=== PATIENT | female | born 1950 | race Caucasian/White ===

== ENCOUNTER 2017-01-13 10:18 | Emergency (ER) | payer MEDICARE, MEDICAID ==
[2017-01-13 10:19] VITALS: BMI 27.4
[2017-01-13 10:26] VITALS: O2SAT 98
[2017-01-13] MEDS ORDERED: Sodium Chloride 0.9% 1,000 ML IV SCH (11:00)
[2017-01-13 11:28] LABS: BASO # 0.02 K/mm3 (0.0-2.0); BASO % 0.3 % (0.0-3.0); EOS # 0.6 (0.0-0.7); EOS % 9.8 % (1.5-5.0); GRAN # 2.91 (1.4-6.5); GRAN % 50.8 % (50.0-68.0); LYMPH # 1.8 (1.2-3.4); LYMPH % 30.5 % (22.0-35.0); MEAN CELL VOLUME 83.7 fl (80.0-105.0); MEAN CORPUSCULAR HEMOGLOBIN 27.6 pg (25.0-35.0); MONO # 0.5 (0.1-0.6); MONO % 8.6 % (1.0-6.0); PLATELET COUNT 145 10^3/uL (120.0-450.0); RED CELL DISTRIBUTION WIDTH 14.8 % (11.5-14.5); WHITE BLOOD COUNT 5.7 10^3/ul (4.5-11.0)
[2017-01-13 11:32] LABS: ALB/GLOB RATIO 1.6 (1.1-1.8); ALKALINE PHOSPHATASE 69 U/L (38-126); ALT/SGPT 42 U/L (7-56); AST/SGOT 23 U/L (14-36); BILIRUBIN,TOTAL 0.9 mg/dL (0.2-1.3); BLOOD UREA NITROGEN 15 mg/dL (7-21); CALCIUM 9.6 mg/dL (8.4-10.5); CARBON DIOXIDE 29 mmol/L (21-33); CHLORIDE 102 mmol/L (98-107); GFR AFRICAN-AMERICAN > 60; GLUCOSE,RANDOM 133 mg/dL (70-110); MAGNESIUM 1.9 mg/dL (1.7-2.2); PH,URINE 6.5 (4.7-8.0); PHOSPHOROUS 3.7 mg/dL (2.5-4.5); POTASSIUM 4.2 mmol/L (3.6-5.0); SODIUM 142 mmol/L (132-148); TOTAL PROTEIN 7.5 g/dL (5.8-8.3); URINE APPEARANCE CLEAR (CLEAR); URINE BILIRUBIN NEGATIVE (NEGATIVE); URINE BLOOD NEGATIVE (NEGATIVE); URINE COLOR YELLOW (YELLOW); URINE GLUCOSE (UA) NEGATIVE (NEGATIVE); URINE KETONE NEGATIVE (NEGATIVE); URINE LEUKOCYTE ESTERASE SMALL Leu/uL (NEGATIVE); URINE PROTEIN TRACE mg/dL (<30 mg/dL); URINE UROBILINOGEN 0.2 E.U./dL (<1 E.U./dL)
[2017-01-13 11:33] LABS: INR 0.96 (0.93-1.08)
[2017-01-13 11:49] LABS: TROPONIN I < 0.01 ng/mL
[2017-01-13 12:01] LABS: URINE RBC 0 - 2 /hpf (0-2)
[2017-01-13] MEDS ORDERED: Morphine 2 mg/ml ISec IVP STA (12:02)
[2017-01-13 12:03] LABS: URINE AMORPHOUS SEDIMENT FEW; URINE BACTERIA MANY (NEG)
--- NOTE | 2017-01-13 12:10 | ED PDOC ---
Arrival/HPI - General Chief Complaint: Back Pain Time Seen by Provider: 01/13/17 10:23 Historian: Patient - History of Present Illness Narrative History of Present Illness (Text): 01/13/17 12:06 66yo F PMH HTN, HLD, DM2, gout, osteoporosis and hx of ablation for arrhythmia who presents with L flank pain x3 days a/w nausea. pt states that he pain is sharp and non-radiating, but causing a great amount of discomfort. pt denies dysuria, hematuria, fevers/chills, chest pain, shortness of breath. a year ago, the patient presented with back pain (which she states she has hx of herniated discs in cervical and lumbar spines) and was found to have a 16mm R adrenal nodule, but it has not bothered her since. PMD: Dr. Jeffry Delaney PSH: thyroidectomy, cardiac ablation Time/Duration: < week Symptom Onset: Sudden Symptom Course: Unchanged Quality: Stabbing Severity Level: Severe Activities at Onset: Rest Context: Home Past Medical History - Provider Review Nursing Documentation Reviewed: Yes - Past History Past History: Non-Contributing - Infectious Disease Hx of Infectious Diseases: None - Reproductive Menopause: Yes - Past Medical History Past Medical History: Non-Contributing - Cardiac Hx Cardiac Arrhythmia: Yes Hx Hyperlipemia: Yes Hx Hypertension: Yes - Pulmonary Hx Respiratory Disorders: No - Neurological Hx Neurological Disorder: No - HEENT Hx HEENT Disorder: No - Renal Hx Renal Disorder: No - Endocrine/Metabolic Other/Comment: hx thyroidectomy - Hematological/Oncological Hx Blood Disorders: No - Integumentary Hx Dermatological Disorder: No - Musculoskeletal/Rheumatological Hx Musculoskeletal Disorders: Yes Hx Back Pain: Yes Hx Herniated Disk: Yes Hx Osteoporosis: Yes - Gastrointestinal Hx Gastrointestinal Disorders: No - Genitourinary/Gynecological Hx Genitourinary Disorders: No - Psychiatric Hx Psychophysiologic Disorder: No Hx Substance Use: No - Surgical History Hx Thyroidectomy: Yes Other/Comment: heart ablation - Anesthesia Hx Anesthesia: Yes Hx Anesthesia Reactions: No Hx Malignant Hyperthermia: No Family/Social History - Physician Review Nursing Documentation Reviewed: Yes Family/Social History: No Known Family HX Smoking Status: Never Smoked Hx Alcohol Use: No Hx Substance Use: No Allergies/Home Meds Allergies/Adverse Reactions: Allergies No Known Allergies Allergy (Verified 01/13/17 10:26) Home Medications: Home Meds Medication Instructions Recorded Confirmed Metformin ER [Glucophage XR] 500 mg PO DAILY 03/22/15 01/13/17 Verapamil [Calan Tab] 40 mg PO TID 03/22/15 01/13/17 Levothyroxine [Synthroid] 137 mcg PO DAILY 05/20/15 01/13/17 Losartan [Cozaar] 50 mg PO DAILY 05/20/15 01/13/17 Aspirin [Ecotrin] 81 mg PO DAILY 01/13/17 01/13/17 Colchicine [Colcrys] 0.6 mg PO DAILY 01/13/17 01/13/17 Glimepiride [amaRYL] 2 mg PO DAILY 01/13/17 01/13/17 Olmesartan Medoxomil [Benicar] 20 mg PO DAILY 01/13/17 01/13/17 Review of Systems - Physician Review All systems were reviewed & negative as marked: Yes - Review of Systems Constitutional: absent: Fevers Respiratory: absent: SOB Cardiovascular: absent: Chest Pain Gastrointestinal: Nausea. absent: Vomiting Musculoskeletal: Back Pain (L flank pain) Physical Exam Vital Signs Reviewed: Yes Vital Signs Temp Pulse Resp BP Pulse Ox 01/13/17 14:40 98.2 F 84 16 130/80 98 01/13/17 13:47 93 H 18 124/86 98 01/13/17 10:24 97.9 F 100 H 18 120/83 98 01/13/17 10:19 97.9 F 100 H 18 120/83 98 Appearance: Positive for: Well-Appearing Pain Distress: None Mental Status: Positive for: Alert and Oriented X 3 - Systems Exam Head: Present: Atraumatic, Normocephalic Pupils: Present: PERRL Extroacular Muscles: Present: EOMI Conjunctiva: Present: Normal Mouth: Present: Moist Mucous Membranes Neck: Present: Normal Range of Motion Respiratory/Chest: Present: Clear to Auscultation, Good Air Exchange Cardiovascular: Present: Tachycardic Abdomen: Present: Normal Bowel Sounds. No: Tenderness, Distention Back: Present: CVA Tenderness (L ) Upper Extremity: Present: Normal Inspection Lower Extremity: Present: Normal Inspection. No: Edema Neurological: Present: CN II-XII Intact, Speech Normal Skin: Present: Warm, Dry Psychiatric: Present: Alert, Oriented x 3 Medical Decision Making ED Course and Treatment: 01/13/17 12:13 Impression: 66yo F presenting with L flank pain x3 days likely 2/2 nephrolithiasis Plan: - CT abdomen w/o contrast - pain management - Labs - UA - IVF NS @ 100 Progress: Pt unable to find comfortable position. Morphine ordered 01/13/17 12:19 EKG: NSR @ 83bpm. NO ST or interval changes. CT Abdomen and Pelvis without intravenous contrast Report Date : 01/13/2017 12:16:56 Creator : Shanti Taylor MD FINDINGS: LOWER THORAX: There is dependent atelectasis in the lung bases. LIVER: The liver is normal in size. No gross lesion or ductal dilatation. GALLBLADDER AND BILE DUCTS: There are multiple gallstones. PANCREAS: The pancreas is normal in size. No gross lesion or ductal dilatation. SPLEEN: There is borderline splenomegaly. ADRENALS: There is a stable 15 mm low-attenuation nodule in the right adrenal gland. No nodule in the left abdomen. KIDNEYS AND URETERS: Both kidneys are normal in size without nephrolithiasis. No hydronephrosis. No solid mass. VASCULATURE: No aortic aneurysm. BOWEL: The small bowel loops are normal in caliber there is large amount of stool in the ascending and transverse colon and moderate amount of stool in the left hemicolon. No bowel dilatation or obstruction APPENDIX: No inflammatory changes in the right lower quadrant. PERITONEUM: No free fluid. No free air. LYMPH NODES: No enlarged lymph nodes. BLADDER: Partially decompressed. REPRODUCTIVE: The uterus is normal in size. BONES: No acute fracture. Within normal limits for the patient's age. OTHER FINDINGS: None. IMPRESSION: 1. No evidence of nephrolithiasis, obstructive uropathy or hydronephrosis. 2. Stable 15 mm right adrenal nodule. 3. Constipation. No evidence of bowel obstruction. 4. Cholelithiasis. 01/13/17 12:35 Reassessment: pain improved with Morphine Chest XRay Report Date : 01/13/2017 13:10:26 Creator : Shanti Taylor MD FINDINGS: LUNGS: The lungs are well inflated and clear. PLEURA: No significant pleural effusion identified, no pneumothorax apparent. CARDIOVASCULAR: Normal. OSSEOUS STRUCTURES: No significant abnormalities. VISUALIZED UPPER ABDOMEN: Normal. OTHER FINDINGS: None. IMPRESSION: No active pulmonary disease. 01/13/17 14:47 Reassessment: pt is mobilizing well, and offering no complaints. it was explained to the patient that she should f/u with her PMD for optimization of pain management and for recommending a PT rehab location for strengthening and condition. Pt is ambulating without any discomfort. Pt states that she is unable to take Ultram so Naprosyn is prescribed. Re-evaluation Time: 12:19 Reassessment Condition: Re-examined, Improved (w/ morphine) - Lab Interpretations Lab Results: 01/13/17 11:10 01/13/17 11:10 Lab Results 01/13/17 11:10: Urine Color Yellow, Urine Appearance Clear, Urine pH 6.5, Ur Specific St[place] 1.020, Urine Protein Trace H, Urine Glucose (UA) Negative, Urine Ketones Negative, Urine Blood Negative, Urine Nitrate Negative, Urine Bilirubin Negative, Urine Urobilinogen 0.2, Ur Leukocyte Esterase Small H, Urine RBC 0 - 2, Urine WBC 5 - 10, Ur Epithelial Cells 4 - 5, Amorphous Sediment Few, Urine Bacteria Many, Hyaline Casts 0 - 2, Urine Other Uyeast 01/13/17 11:10: PT 10.4, INR 0.96 01/13/17 11:10: WBC 5.7, RBC 5.14, Hgb 14.2, Hct 43.0, MCV 83.7, MCH 27.6, MCHC 33.0, RDW 14.8 H, Plt Count 145, Gran % 50.8, Lymph % (Auto) 30.5, Merrick % (Auto ) 8.6 H, Eos % (Auto) 9.8 H, Baso % (Auto) 0.3, Gran # 2.91, Lymph # 1.8, Merrick # 0.5, Eos # 0.6, Baso # 0.02 01/13/17 11:10: Sodium 142, Potassium 4.2, Chloride 102, Carbon Dioxide 29, Anion Gap 15, BUN 15, Creatinine 0.9, Est GFR ( Amer) > 60, Est GFR (Non- Af Amer) > 60, Random Glucose 133 H, Calcium 9.6, Phosphorus 3.7, Magnesium 1.9 , Total Bilirubin 0.9, AST 23, ALT 42, Alkaline Phosphatase 69, Lactate Dehydrogenase 442, Total Creatine Kinase 52, Troponin I < 0.01, Total Protein 7.5, Albumin 4.6, Globulin 2.9, Albumin/Globulin Ratio 1.6 I have reviewed the lab results: Yes - RAD Interpretation Radiology Orders: 01/13/17 10:54 ABD & PELVIS W/O PO OR IV CONT [CT] Stat 01/13/17 12:36 CHEST PORTABLE [RAD] Stat Brine Maker: Radiologist - EKG Interpretation Interpreted by ED Physician: Yes Type: 12 lead EKG - Medication Orders Current Medication Orders: Discontinued Medications Sodium Chloride (Sodium Chloride 0.9%) 1,000 mls @ 100 mls/hr IV .Q10H [facility] Last Admin: 01/13/17 11:00 Dose: 100 mls/hr eMAR Start Stop Document 01/13/17 11:00 SRE (Rec: 01/13/17 11:46 SRE [id number]) Intravenous Solution Start Date 01/13/17 Start Time 11:00 End Date 01/13/17 End time 21:00 Total Infusion Time 600 Ketorolac Tromethamine (Toradol) 30 mg IVP STAT STA Stop: 01/13/17 10:55 Last Admin: 01/13/17 11:40 Dose: 30 mg MAR Pain Assessment Document 01/13/17 11:40 SRE (Rec: 01/13/17 11:45 SRE [id number]) Pain Reassessment Is this a pain reassessment? Yes Sleep Is patient sleeping during reassessment? No Presence of Pain Presence of Pain Yes Pain Scale Used Pain Scale Used Numeric Location Left, Right or Bilateral Left Pain Location Body Site Back Description Description Intermittent IVP Administration Document 01/13/17 11:40 SRE (Rec: 01/13/17 11:45 SRE [id number]) Charges for Administration # of IVP Administrations 1 Re-Assess: MAR Pain Assessment Document 01/13/17 12:40 SRE (Rec: 01/13/17 12:50 SRE [id number]) Pain Reassessment Is this a pain reassessment? No Sleep Is patient sleeping during reassessment? No Presence of Pain Presence of Pain No Morphine Sulfate (Morphine) 2 mg IVP STAT STA Stop: 01/13/17 12:03 Last Admin: 01/13/17 12:15 Dose: 2 mg MAR Pain Assessment Document 01/13/17 12:15 SRE (Rec: 01/13/17 12:16 SRE [id number]) Pain Reassessment Is this a pain reassessment? Yes Sleep Is patient sleeping during reassessment? No Presence of Pain Presence of Pain Yes Pain Scale Used Pain Scale Used Numeric Location Left, Right or Bilateral Left Pain Location Body Site Back Description Description Constant IVP Administration Document 01/13/17 12:15 SRE (Rec: 01/13/17 12:16 SRE [id number]) Charges for Administration # of IVP Administrations 1 Disposition/Present on Arrival - Present on Arrival Any Indicators Present on Arrival: No History of DVT/PE: No History of Uncontrolled Diabetes: No Urinary Catheter: No History of Decub. Ulcer: No History Surgical Site Infection Following: None - Disposition Have Diagnosis and Disposition been Completed?: Yes Diagnosis: Musculoskeletal pain Disposition: HOME/ ROUTINE Disposition Time: 14:32 Patient Plan: Discharge Patient Problems: Current Active Problems Problem Status Onset Musculoskeletal pain Acute Condition: GOOD Discharge Instructions (ExitCare): Chronic Back Pain (ED), Back Exercises (ED) Additional Instructions: - please take the medications as prescribed if needed - please follow up with your PMD within 1 week - please follow attached back exercises - if you experience any severe back pain, trouble urinating, fevers/chills, nausea/vomiting, please go to ER for evaluation Prescriptions: Naproxen [Naprosyn] 250 mg PO BID PRN #14 tablet PRN Reason: Pain, Moderate (4-7) Referrals: Jeffry Delaney MD [Medical Doctor] - Follow up with primary Forms: Xinrong (Irish)
--- NOTE | 2017-01-13 12:18 | CT ---
PROCEDURE: CT Abdomen and Pelvis without intravenous contrast HISTORY: Left flank pain. COMPARISON: CT abdomen from 08/18/2015 TECHNIQUE: CT scan of the abdomen and pelvis was performed without administration of intravenous contrast. Oral contrast was not administered. Coronal and sagittal reformatted images were obtained. Radiation dose: Total exam DLP = 768.42 mGy-cm. This CT exam was performed using one or more of the following dose reduction techniques: Automated exposure control, adjustment of the mA and/or kV according to patient size, and/or use of iterative reconstruction technique. FINDINGS: LOWER THORAX: There is dependent atelectasis in the lung bases. LIVER: The liver is normal in size. No gross lesion or ductal dilatation. GALLBLADDER AND BILE DUCTS: There are multiple gallstones. PANCREAS: The pancreas is normal in size. No gross lesion or ductal dilatation. SPLEEN: There is borderline splenomegaly. ADRENALS: There is a stable 15 mm low-attenuation nodule in the right adrenal gland. No nodule in the left abdomen. KIDNEYS AND URETERS: Both kidneys are normal in size without nephrolithiasis. No hydronephrosis. No solid mass. VASCULATURE: No aortic aneurysm. BOWEL: The small bowel loops are normal in caliber there is large amount of stool in the ascending and transverse colon and moderate amount of stool in the left hemicolon. No bowel dilatation or obstruction APPENDIX: No inflammatory changes in the right lower quadrant. PERITONEUM: No free fluid. No free air. LYMPH NODES: No enlarged lymph nodes. BLADDER: Partially decompressed. REPRODUCTIVE: The uterus is normal in size. BONES: No acute fracture. Within normal limits for the patient's age. OTHER FINDINGS: None. IMPRESSION: 1. No evidence of nephrolithiasis, obstructive uropathy or hydronephrosis. 2. Stable 15 mm right adrenal nodule. 3. Constipation. No evidence of bowel obstruction. 4. Cholelithiasis.
--- NOTE | 2017-01-13 13:12 | RAD ---
HISTORY: abnormal back pain COMPARISON: No prior. FINDINGS: LUNGS: The lungs are well inflated and clear. PLEURA: No significant pleural effusion identified, no pneumothorax apparent. CARDIOVASCULAR: Normal. OSSEOUS STRUCTURES: No significant abnormalities. VISUALIZED UPPER ABDOMEN: Normal. OTHER FINDINGS: None. IMPRESSION: No active pulmonary disease.
[2017-01-13 14:53] VITALS: BP 130/80; PULSE 84; RESP 16; TEMP 98.2
--- NOTE | 2017-01-14 11:30 | CARD ---
APPROVED REPORT EKG Measurement Heart [id number] ME [id number] <Conclusion> Normal sinus rhythm Normal ECG
== END 2017-01-13 14:47 | disposition home or self-care (01) ==
LOC: ED 10:18
DX: M79.1 Myalgia (principal); I10 Essential (primary) hypertension; E11.9 Type 2 diabetes mellitus without complications
CPT/HCPCS: 71010; 74176; 80053; 81001; 82550; 83615; 83735; 84100; 84484; 85025; 85610; 87086; 93005; 96361; 96374; 96375; 99284; J1885; J2270; J7040